=== PATIENT | female | born 1945 | race Hispanic/Latino ===

== ENCOUNTER → 2025-04-19 | Outpatient (CLI) | payer OTHER ==
[~2025-04-19] MED LIST: IOHEXOL 350 MG/ML 100ML INFUS..BTL IV ONE
--- NOTE | 2025-04-19 21:21 | CARDIOLOGY ---
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 A dedicated, limited window, coronary imaging protocol was used, with single breath-hold, retrospective ECG gating, and au tomated arrhythmia rejection. 100 cc of low osmolar contrast agent: Omnipaque 350 was delivered via a 18-gauge IV catheter in the right antecubital fossa, using a power injector and followed by 60 cc of normal saline bolus as a chaser. Collimated images were reformatted at 0.5 mm intervals, and sent to an offline independent workstation for interpretation, using 3D anatomic reconstructions: Curved multiplanar reconstructions, maximum intensity projections, and multiplanar imaging. 5 mg IV metoprolol was administered prior to scanning. 0.8 mg SL nitroglycerin was given. CORONARY ARTERY DESCRIPTIONS: The coronary arteries arise in normal position. Left main coronary artery: Normal caliber vessel that bifurcates into the LAD and LCx. No stenosis. Left anterior descending coronary artery: Normal caliber vessel and gives rise to diagonal and septal branches. No stenosis. Left circumflex coronary artery: Normal caliber, nondominant and gives rise to a large OM branch. There is mixed calcified and noncalcified plaque in the proximal LCx with 70-80% stenosis. Right coronary artery: Large, dominant vessel giving rise to the PL and PDA branches. No stenosis. CAD-RADs: 4A, severe stenosis. Thoracic Aorta: Normal diameter. Jennifer Siu MD Cardiovascular Disease [facility] JENNIFER SIU MD Apr 19, 2025 21:21
== END | disposition home or self-care (01) ==
LOC: RAH 08:57
PROVIDERS: ATTEND Internal Medicine Cardiovascular Disease
DX: I25.10 Atherosclerotic heart disease of native coronary artery without angina pectoris (principal); R07.9 Chest pain, unspecified
CPT/HCPCS: 75574; J3490; Q9967

== ENCOUNTER 2025-05-29 05:45 | Day surgery (SDC) | payer OTHER ==
[2025-05-22 11:06] LABS: CREATININE 0.7 mg/dL (0.5-1.0); GLOMERULAR FILTR. RATE CALC 88.0 mL/min (>90); GLUCOSE,RANDOM 173.0 mg/dL (70-105); SODIUM SERUM 139.0 mmol/L (136-145); UREA NITROGEN, BLOOD 23.0 mg/dL (7-18)
--- NOTE | 2025-05-22 11:08 | EKG ---
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
[2025-05-22 11:25] VITALS: BP 158/62; PULSE 74; RESP 18; TEMP 97.3
[2025-05-22 11:26] LABS: IMMATURE GRANULOCYTE ABSOLUTE 0.03 K/uL (0-1); NUCLEATED RED BLOOD CELLS 0.0 % (0.0-0.19); PLATELET COUNT (AUTO) 252 K/uL (130-400); RED BLOOD CELL COUNT(AUTO) 4.79 MIL/uL (4.00-5.50); RED CELL DISTRIBUTION WIDTH 12.4 % (11.0-15.5); WHITE BLOOD COUNT (AUTO) 9.2 K/uL (4.8-10.8)
[2025-05-22 11:40] LABS: APPEARANCE,URINE CLEAR (CLEAR); GLUCOSE, URINE (UA) >=1000 mg/dL (NEGATIVE); LEUKOCYTE ESTERASE ,URINE NEGATIVE Leu/uL (NEGATIVE); NITRATE,URINE NEGATIVE (NEGATIVE); OCCULT BLOOD,URINE MODERATE (NEGATIVE)
[2025-05-22 11:43] LABS: ADD UA MICROSCOPIC YES
[2025-05-22 12:39] LABS: INR 0.96 (0.85-1.15)
[2025-05-22 12:44] LABS: SQUAMOUS EPITHELIAL CELL,UR Rare /HPF (0-2)
--- NOTE | 2025-05-23 01:04 | HMCIMG ---
EXAM: CR CHEST, 1 VIEW CLINICAL HISTORY: Chest radiograph was obtained in a single view for preoperative evaluation. COMPARISON: None provided TECHNIQUE: Single frontal radiograph of the chest was obtained. FINDINGS: Lines/Devices: None. Lungs: Bilateral prominence of the vascular markings is noted, likely reflecting age-related vascular changes. No focal consolidation is identified. There is no pleural effusion. There is no pneumothorax. Mediastinum and cardiovascular structures: The aortic contour demonstrates unfolding with associated atherosclerotic changes. The cardiac silhouette is within normal limits. The central airway and mediastinal contours are unremarkable. Bones and soft tissues: The visualized osseous structures show no acute abnormality. IMPRESSION: 1. No evidence of acute cardiopulmonary abnormalities. 2. Bilateral prominence of the vascular markings, likely reflecting age-related vascular changes. 3. Aortic unfolding with atherosclerotic changes. /[place]
[~2025-05-29] VITALS: Ht 149.9 cm; Wt 66.1 kg
[2025-05-29] VITALS (14 sets, daily range): BP systolic 122–166; BP diastolic 48–82; PULSE 62–73; RESP 11–20; TEMP 97.2–97.6
[2025-05-29] MEDS: 0.9%NACL 1000ML 1,000 ML IV SCH (06:42)
[2025-05-29] MEDS ORDERED: LIDOCAINE HCL 400MG/20ML VIAL ONE (07:09)
[2025-05-29] MEDS ORDERED: NITROGLYCERIN 50MG VIAL ONE (07:09)
[2025-05-29] MEDS ORDERED: IOHEXOL 350 MG/ML 100ML INFUS..BTL IV ONE (07:09)
[2025-05-29] MEDS ORDERED: VERAPAMIL HCL 2.5 MG/ML VIAL ONE (07:09)
[2025-05-29] MEDS ORDERED: HEParin-NS 1,000 UNIT/500 ML 1,000 ML IV ONE (07:09)
[2025-05-29] MEDS ORDERED: MIDAZOLAM HCL 1 MG/ML 2ML VIAL ONE (07:29)
[2025-05-29] MEDS ORDERED: HEParin-NS 1,000 UNIT/500 ML 500 ML IV ONE (08:49)
--- NOTE | 2025-05-29 09:55 | PRN ---
PROCEDURE NOTE Indications: PETERSEN Chest pain, CCS II symptoms Abnormal coronary CTA done on 04/19/2025 Normal left ventricle systolic function (LVEF 55-60% by echocardiogram done on 04/20/2025 Mild AR HTN HLP DM2 BRANDON Procedures: Coronary angiogram, IFR of the LCX Introduction: After informed written consent was obtained, the patient was brought to the Catheterization Lab in the usual fasting state. Following sterile prep and drape, a time out was performed, then moderate sedation was administered, 1mg of Versed and 50mcg of Fentanyl, then 1% Lidocaine was infiltrated into the right wrist. Using a Modified Seldinger technique, a 6Fr Sheath was inserted into the right radial artery. While under fluoroscopic guidance, diagnostic coronary catheters were advanced over a wire into the central circulation where they were aspirated, flushed and placed to pressure monitoring, once the wire was removed. Coronary Angio: The left and right coronary arteries were engaged with appropriate catheters and angiography was performed under continuous pressure monitoring. Cardiac Findings: Right dominant system LM: Large caliber vessel with mild luminal irregularities. The vessel bifurcates into the LAD and LCX. LAD: Medium caliber vessel with 20% stenosis in the mid LAD. The rest of the vessel has mild luminal irregularities. Diagonal 1: Small caliber vessel with mild luminal irregularities LCx: Large caliber vessel with 30% stenosis in the proximal LCX and 70% stenosis in the distal LCX. Ramus: Medium caliber vessel with mild irregularities OM1: Small caliber vessel (<1.0 mm) with mild luminal irregularities OM2: Medium caliber vessel with mild luminal irregularities RCA: Medium caliber vessel with 20% stenosis in the proximal to mid RCA. The rest of the vessel has mild luminal irregularities. RPDA: Small caliber vessel with mild luminal irregularities. RPLV: Small caliber vessel with mild luminal irregularities Medications given: Versed 2mg, Fentanyl 75mcg, nitro glycerin 800 mcg, nicardipine 200 mcg, heparin 5000 units Coronary Intervention: Guide catheter: Delevan (diagnostic) Guidewire: IFR wire After reviewing the above-mentioned findings the decision was made to further evaluate the LCX. An ACT was obtained and was found to be greater than 250. We then advanced the IFR wire through the tiger catheter and into the left main. We then normalized with the pressures. We then advanced the IFR wire across the areas stenosis in the distal LCX and performed a hemodynamic assessment. The degree of stenosis in the distal LCX was deemed to be hemodynamically significant (IFR 0.83). The IFR wire was then pulled back into the left main there was no significant drip. The decision was then made to bring the patient back as an outpatient and address the stenosis in the distal LCX via the right common femoral artery and a different guide. The IFR wire and tiger catheter were then removed. The patient tolerated the procedure well and without issue. Complications: None Conscious Sedation Monitoring: Under my direct order and supervision, medication for moderate conscious sedation was administered by the nursing staff and the patients level of consciousness and physiological status was monitored by an independent trained nurse. Closure of Access Site: After the case completed the sheath was pulled and a TR band was deployed in the right radial artery without complication. Conclusion: 1. 1V CAD, 70% stenosis in the distal LCX, hemodynamically significant by IFR (0.83) 2. 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 PETERSEN 4. Chest pain, CCS II symptoms 5. Abnormal coronary CTA done on 04/19/2025 6. Normal left ventricle systolic function (LVEF 55-60% by echocardiogram done on 04/20/2025 7. Mild AR 8. HTN 9. HLP 10. DM2 11. BRANDON Recommendation: 1. Continue goal-directed medical therapy 2. Please enact TR band removal protocol. 3. Start NS at 100 mL/hour x3 hours. 4. 4 hours of bedrest 4. Wrist precautions 6. We will bring the patient back as an outpatient within the next two weeks to address the CAD in the distal LCX 7. No driving for the next 48 hours. 8. No heavy lifting or strenuous exercise for the next two weeks. 9. Okay to DC once the TR band removal protocol has been complete and the right wrist is soft, free of bruising, bleeding, and or hematoma formation. SAGE NGUYEN MD May 29, 2025 09:55
[2025-05-29] MEDS ORDERED: 0.9%NACL 1000ML 1,000 ML IV SCH (10:00)
[2025-05-29] MEDS ORDERED: GLUCAGON 1MG KIT 1 MG ML IM PRN (10:00)
[2025-05-29] MEDS ORDERED: DEXTROSE 50%-WATER 50 ML DISP.SYRIN IV PRN (10:00)
--- NOTE | 2025-05-29 14:25 | NUR ---
0MLS OF AIR REMAIN IN TR BAND. REMOVED TR BAND CHLORAPREP TO RIGHT WRIST. APPLIED STERILE D-STAT IN PLACE TO RIGHT WRIST. APPLIED CO BAN TO SECURE D-STAT. REINFORCED THE IMPORTANCE OF NOT FLEXING OR BENDING THE WRIST EXCESSIVELY TO PATIENT AND FAMILY. PATIENT AND DAUGHTER VOICED UNDERSTANDING. NO ACTIVE BLEEDING OR DRAINAGE NOTED TO RIGHT WRIST. NO REDNSS OR SWELLING NOTED. RIGHT WRIST SOFT TO TOUCH.
== END 2025-05-29 14:42 | disposition home or self-care (01) ==
LOC: DAH 05:45
PROVIDERS: ATTEND Internal Medicine Cardiovascular Disease
DX: R94.39 Abnormal result of other cardiovascular function study (principal); I25.10 Atherosclerotic heart disease of native coronary artery without angina pectoris; I10 Essential (primary) hypertension; E11.9 Type 2 diabetes mellitus without complications; E78.5 Hyperlipidemia, unspecified; G47.33 Obstructive sleep apnea (adult) (pediatric); Z79.01 Long term (current) use of anticoagulants; Z98.891 History of uterine scar from previous surgery; Z87.891 Personal history of nicotine dependence; Z90.710 Acquired absence of both cervix and uterus; Z80.9 Family history of malignant neoplasm, unspecified; Z88.0 Allergy status to penicillin; Z79.899 Other long term (current) drug therapy; Z98.890 Other specified postprocedural states
CPT/HCPCS: 80048; 83880; 85025; 85610; 85730; 81001; 36415; 71045; 93005; 93454; 99156; 99157 ×5; 93571; 85347; 82948; Q9965 ×2; C1769 ×2; C1894 ×2; J3010; J3490 ×3; J7030; J1644 ×3; J2250; Q9967; A4215; A4222; A6260; A4221; A4663; A4216; A4335; A4606; A4520; A4223 ×3; A4554; 93572; 96360; 96361